=== PATIENT | male | born 1945 | race Caucasian/White ===

== ENCOUNTER 2016-05-01 18:11 | Emergency (ER) | payer MEDICARE, BC, OTHER ==
[~2016-05-01 18:11] MED LIST: ADVAIR 25028 BLISTE1 INH; ADVIL200 M3 PO; ALTACE5 MG PO; ANTACID-ANTIGA355 ML PO; ATIVAN0.5 M1 PO; AUGMENTIN875 MG PO; AZILECT1 M1 PO; BYSTOLIC5 M1 PO; CELEXA40 MG PO; CENTRUM SILVER1 EAC3 PO; CLARITIN10 M8 PO; CLONAZEPAM0.5 MG PO; DHS TAR120 ML TP; DUONEB 2.5-0.5MG3 M1 AERO NEB; EXPECTORAN100 MG/52 PO; FLEXERIL10 MG PO; FLOMAX0.4 M1 PO; IMODIUM A-D2 M3 PO; IRON325 M3 PO; KEFLEX500 M4 PO; KLONOPIN0.5 M1 PO; MILK OF MAGNESIA PO; MIRALAX17 GM PO; MIRAPEX ER1.5 MG PO; MULTIVITAMIN1 TAB PO; NASONEX17 G1; NORVASC2.5 MG PO; PROVENTIL HFA6.7 G1 INH; SEROQUEL25 MG PO; SINEMET 25-1001 EACH PO; TYLENOL325 M2 PO; TYLENOL325 MG PO
[2016-05-01 18:38] LABS: BASO % 0.1 % (0-2); EOS % 0.1 % (0-7); HGB-HEMOGLOBIN 11.7 gm/dl (13.5-17.0); IMMATURE GRANULOCYTES ABSOLUTE 0.06 tho/cmm (0-0.03); IMMATURE GRANULOCYTES PERCENT 0.4 % (0-0.3); LYMPH % 2.5 % (20-45); LYMPH ABSOLUTE COUNT 0.4 tho/cmm (0.8-4.5); MCH (MEAN CORPUSCULAR HGB) 30.2 pg (28.0-32.0); MCHC MEAN CORPUSCULAR HGB CONC 32.5 % (32.0-36.0); MCV (MEAN CELL VOLUME) 92.8 fl (82.0-96.0); MONO % 7.4 % (0-12); MONOCYTE ABSOLUTE COUNT 1.2 tho/cmm (0.0-1.2); NEUTROPHIL ABSOLUTE COUNT 14.8 tho/cmm (1.6-8.0); NEUTROPHIL-AUTOMATED 14.8 tho/cmm (1.6-8.0); NEUTROPHILS % 89.5 % (40-80); PLATELET COUNT 352 tho/cmm (150-450); RED BLOOD COUNT 3.88 mil/cmm (4.40-5.70); RED CELL DISTRIBUTION WIDTH 14.4 % (12.4-16.4); WHITE BLOOD COUNT 16.6 tho/cmm (4.0-10.0)
[2016-05-01] MEDS ORDERED: CERTAVITE SR-A1 EACH PO (18:53)
[2016-05-01] MEDS ORDERED: CETIRIZINE HCL PO (18:54)
[2016-05-01] MEDS ORDERED: KLONOPIN0.5 M1 PO (18:54)
[2016-05-01] MEDS ORDERED: ROBAFEN100 MG/52 PO (18:55)
[2016-05-01 18:56] LABS: ALB/GLOB RATIO 0.7 (0.8-2.0); ALBUMIN 3.3 g/dl (3.5-5.0); ALKALINE PHOSPHATASE 119 U/L (33-138); ALT/SGPT 29 U/L (12-78); ANION GAP 14 mmol/L (0-20); AST/SGOT 28 U/L (10-40); BILIRUBIN,TOTAL 0.6 mg/dl (0.0-1.5); BLOOD UREA NITROGEN 31 mg/dl (6-24); CALCIUM 8.5 mg/dl (8.5-10.5); CARBON DIOXIDE-VENOUS 22 mmol/L (22-32); CHLORIDE 107 mmol/l (96-110); CREATININE 2.16 mg/dl (0.60-1.30); GLUCOSE 110 mg/dL (70-110); SODIUM 138 mmol/L (135-145); eGFR VALUE FOR BLACK 35 mL/Min
[2016-05-01 20:30] LABS: URINE APPEARANCE CLOUDY; URINE BILIRUBIN NEGATIVE (NEG); URINE BLOOD MODERATE (NEG); URINE COLOR YELLOW; URINE GLUCOSE (UA) NEGATIVE (NEG); URINE KETONE NEGATIVE (NEG); URINE LEUKOCYTE ESTERASE POSITIVE (NEG); URINE NITRITE NEGATIVE (NEG); URINE PROTEIN MODERATE (NEG); URINE SPECIFIC GRAVITY 1.015 (1.003-1.030)
[2016-05-01 20:37] LABS: URINE WBC FULL FIELD /[HPF] (0-5)
[2016-05-01 20:38] LABS: URINE AMORPHOUS 2+; URINE BACTERIA 1+; URINE EPITHELIAL CELLS 0-1 /[HPF] (0-10); URINE OTHER RARE YEAST; URINE RBC 15-30 /[HPF] (0-5)
[2016-05-01] MEDS ORDERED: KEFLEX500 M4 PO (21:02)
== END 2016-05-01 21:55 ==
LOC: EDMED 18:11
PROVIDERS: Emergency Medicine
DX: N39.0 Urinary tract infection, site not specified (principal); R09.02 Hypoxemia; E86.0 Dehydration; N18.9 Chronic kidney disease, unspecified; G20 Parkinson's disease; Z85.51 Personal history of malignant neoplasm of bladder; Z79.899 Other long term (current) drug therapy
CPT/HCPCS: J0696; J7030